=== PATIENT | male | born 1965 | race Caucasian/White ===

== ENCOUNTER 2021-10-21 06:55 | Emergency (ER) | payer BC, SELFPAY ==
[2021-10-21 06:56] VITALS: BP 122/92; PULSE 77; RESP 16; TEMP 36.1; O2SAT 99; BMI 33.6
--- NOTE | 2021-10-21 07:06 | CT_ITS ---
STUDY: CT ABDOMEN AND PELVIS WITH CONTRAST REASON FOR EXAM: Male, 56 years old. Lower abd pain, hematochezia, hx diverticulosis RADIATION DOSAGE (If Supplied By Facility): CTDIvol = ( 15.47 ) mGy, DLP = ( 1103.22 ) mGycm TECHNIQUE: Transaxial images were obtained from the dome of the diaphragm to the symphysis pubis without oral contrast. IV 100mL Isovue-370 was administered. Sagittal and coronal images were reconstructed. Individualized dose optimization techniques were used for this CT. COMPARISON: None. FINDINGS: The visualized lung bases are unremarkable. Coronary artery calcification. There is decreased attenuation of the liver consistent with steatosis. Normal gallbladder and extrahepatic biliary system. Normal spleen. Normal pancreas. Normal bilateral adrenal glands. Normal right kidney. Normal left kidney. There is a small hiatal hernia. Findings suggestive of varices in the region of the splenic hilum and along the greater curvature of the stomach. Norrmal small intestine. There are multiple colonic diverticula consistent with diverticulosis. The appendix is visualized and appears normal. Normal abdominal aorta. Normal inferior vena cava. Normal retroperitoneum. Normal urinary bladder. There are prostatic calcifications. Bilateral inguinal hernias containing fat slightly more prominent on the left side. Small umbilical hernia containing fat. Minimal anterolisthesis of L5 on S1 with spondylolysis of the pars interarticularis of the L5 vertebrae. CT/Abdomen/Pelvis W IV Cont ONLY IMPRESSION: Diffuse fatty infiltration of the liver. Findings suggestive of varices formation. Sigmoid diverticulosis. Bilateral inguinal hernias containing fat more prominent on the left side. Electronically Signed: Migeul Ma MD at 8:29 EDT ,
--- NOTE | 2021-10-21 07:07 | EDS_ITS ---
HPI HPI - GI History of Present Illness Chief Complaint: GI Bleed Informant: patient Abdominal Pain/Flank Pain Onset: Days (2) Context: Gradual Onset Timing: Intermittent Quality: Aching and Cramping Location: - (lower abd, mostly suprapubic) Current Severity: Mild Maximum Severity: Severe Worsened by: Nothing Relieved by: - (having BM) Nausea/Vomiting/Emesis GI Symptom: Negative for Nausea or Vomiting Diarrhea/Melena/Hematochezia GI Symptom: Positive for Diarrhea and Hematochezia; Negative for Melena Stool Quality: Positive for Loose (2-3 times per day) Associated Symptoms Associated Symptoms: Negative for Dysuria, Frequency, Hematuria or Urgency Narrative Narrative: Patient states for the past couple days he has had loose bowel movements couple per day, that have had blood in them. With regards to details, he states mostly the blood has come AFTER he has the loose stool/bowel movement. He denies any melena. He takes aspirin 81 mg daily no anticoagulants. He denies any systemic symptoms such as fevers, chills, nausea or vomiting. He has had some episodes of severe lower abdominal pain. He states that is not severe now but it had been. Seem to go away after bowel movement. Has a history of diverticulosis, last colonoscopy was remotely. He states there were some benign polyps but nothing else. He denies any known sick contacts. No travel out of the area recently. States he was eating a lot of walnuts the other night but denies any other suspicious foods that could have caused this. He drinks city water not well, denies any camping or ground water ingestion recently. [facility] Medical History (Updated 10/21/21 @ 10:[address] Medhat Littlejohn MD) Diverticulosis GERD (gastroesophageal reflux disease) Hyperlipidemia Hypertension Home Medications hydrocortisone 1 %-pramoxine 1 % rectal foam (Proctofoam HC) 1 applic ME QHS 7 days #10 grams 10/21/21 [Rx Last Taken Unknown] Allergy/AdvReac Type Severity Reaction Status Date / Time No Known Allergies Allergy Verified 10/21/21 06:58 Surgical History (Updated 10/21/21 @ 07:[address] Medhat Littlejohn MD) Hx of hemorrhoidectomy Social History Smoking Status: Never smoker ROS ROS ED Constitutional Constitutional ED: Denies chills or fever(s) Eyes Eyes: Denies change in vision or diplopia ENT ENT ED: Denies rhinorrhea or sore throat Cardiovascular Cardiovascular: Denies chest pain or palpitations Respiratory/Chest Respiratory/Chest: Denies cough or dyspnea Gastrointestinal Gastrointestinal: Reports abdominal pain, diarrhea and hematochezia; Denies nausea or vomiting Genitourinary Genitourinary ED: Denies dysuria or hematuria Musculoskeletal Musculoskeletal: Denies back pain or neck pain Integumentary Denies abscess or rash Neurologic Neurologic: Denies headache(s), paresthesias or weakness Psychiatric Psychiatric: Denies anxiety or suicidal thoughts EXAM Physical Exam Const Vital Signs: 10/21/21 06:56 Temperature 97 F L Temperature Source Temporal Pulse Rate 77 Respiratory Rate 16 Blood Pressure 122/92 H Blood Pressure Mean 102 Pulse Ox 99 Oxygen Delivery Method Room Air Positive well nourished and well developed General Appearance ED: well developed and NAD HEENT Reports moist mucous membranes normocephalic and atraumatic Eyes PERRL and EOMs intact bilaterally Neck full ROM and supple Resp normal respiratory effort and clear to auscultation bilaterally Cardio regular rate, regular rhythm and no murmurs Rate: Negative for tachycardic GI non-distended GI Narrative: Very mild tenderness suprapubic. No guarding or rebound tenderness. Otherwise benign abdomen. Auscultation: normoactive bowel sounds Palpation: soft Back/Spine no CVA tenderness General Back: other FROM Extremity normal to inspection General Extremety ED: Negative for edema, pulses abnormal or tenderness General Extremity: Negative for edema or pulses abnormal Neuro oriented x3, CN's II-XII intact bilaterally and no sensory deficits noted Sensorium / Orientation: awake and alert Motor Exam: strength 5/5 throughout Skin no rashes or lesions noted and no wounds MDM MDM MDM Narrative Medical decision making narrative: Labs are normal and a CT shows no evidence of diverticulitis, I did note of the incidental findings and discussed them with the patient. I do not think to have anything to do with his symptoms right now. He does have a history of some internal hemorrhoids were banded in the past and I think it would be reasonable to prescribe him treatment for recurrent ones, and if this does not help he can follow-up for possible scope and other evaluation. He is comfortable with that plan. Lab Data Attestation: I reviewed the patient's lab results. Labs: Laboratory Results - last 24 hr 10/21/21 10/21/21 07:20 07:20 WBC 6.9 RBC 5.31 Hgb 15.2 Hct 44.1 MCV 83.1 MCH 28.6 MCHC 34.5 RDW Std Deviation 38.1 RDW Coeff of Mauro 12.5 Plt Count 288 MPV 9.4 Immature Gran % (Auto) 0.600 Neut % (Auto) 62.9 Lymph % (Auto) 22.2 [place] % (Auto) 8.5 Eos % (Auto) 4.5 Baso % (Auto) 1.3 H Absolute Neuts (auto) 4.4 Absolute Lymphs (auto) 1.54 Nucleated RBC % 0 Sodium 138 Potassium 3.8 Chloride 105 Carbon Dioxide 28.0 Anion Gap 5 BUN 16 Creatinine 0.83 Estim Creat Clear Calc 76.75 Est GFR (MDRD) Af Amer 124 Est GFR (MDRD) Non-Af 102 BUN/Creatinine Ratio 19.4 Glucose 112 H Calcium 8.2 L Radiography Diagnostic Testing: Clinical Impression(s) from Imaging Studies Abdomen/Pelvis CT 10/21/21 07:06 IMPRESSION: Diffuse fatty infiltration of the liver. Findings suggestive of varices formation. Sigmoid diverticulosis. Bilateral inguinal hernias containing fat more prominent on the left side. Electronically Signed: Miguel Ma MD at 8:29 EDT , Discharge Plan Triage Chief Complaint: GI Bleed ED Provider: Medhat Littlejohn Dx/Rx/DC Orders Clinical Impression: Intermittent lower abdominal pain, Hematochezia, History of hemorrhoids, History of diverticulosis Instructions: Understanding Rectal Bleeding Prescriptions: New Proctofoam HC 1-1 % foam 1 applic ME QHS 7 Days Qty: 10 0RF Primary Care Provider: LEONARDA CORBIN MD Referrals: NOT,DEFINED [NON-STAFF] - Doctor,Your [NON-STAFF] - 1 Week if not improving Disposition Disposition: Home, Self Care
[2021-10-21 07:28] LABS: Absolute Lymphocyte Count 1.54 X10^3/uL (0.83-4.51); Absolute Neutrophil Count 4.4 X10^3/uL (2.0-7.7); Basophil# 0.09 X10^3/uL; Basophil% 1.3 % (0-1); Eosinophil# 0.31 X10^3/uL; Eosinophils% 4.5 % (0-5); Hematocrit 44.1 % (40-54); Hemoglobin 15.2 g/dL (13.0-16.5); Lymphocyte # 1.54 X10^3/ul (0.83-4.51); Lymphocyte % 22.2 % (19-41); Mean Corp Hgb Conc 34.5 g/dL (32-36); Mean Corpuscular Hgb 28.6 pg (27.0-32.0); Mean Corpuscular Volume 83.1 fL (80-94); Mean Platelet Vol. 9.4 fl (6.2-12.0); Monocyte# 0.59 X10^3/uL; Monocyte% 8.5 % (0-10); NRBC Flagged by Analyzer 0 % (0-5); Neutrophil # 4.37 X10^3/uL (2.7-7.7); Neutrophil % 62.9 % (47-70); Platelet Count 288 K/mm3 (150-450); RBC Distribution Width CV 12.5 % (11.6-14.6); RBC Distribution Width SD 38.1 fl (35.1-43.9); Red Blood Count 5.31 M/mm3 (4.6-6.2); White Blood Count 6.9 K/mm3 (4.4-11.0)
[2021-10-21] MEDS: Dicyclomine 10 MG Capsule 20 MG PO (07:29)
[2021-10-21 07:39] LABS: Anion Gap 5 (5-15); BUN 16 mg/dL (7-18); BUN/Creat Ratio 19.4 RATIO (10-20); Calcium,Total 8.2 mg/dL (8.5-10.1); Chloride 105 mmol/L (98-107); Creatinine, Serum 0.83 mg/dL (0.70-1.30); EST Glomerular Filtration Rate 102 mL/min (>60); Est Glom Filt Rate - Afr Amer 124 mL/min (>60); Estimated Creatinine Clearance 76.75 ml/min; Glucose 112 mg/dL (74-106); Potassium 3.8 mmol/L (3.5-5.1); Sodium Level 138 mmol/L (136-145)
[2021-10-21 10:45] VITALS: BP 117/87; PULSE 74; RESP 16; O2SAT 98
== END 2021-10-21 10:47 | disposition home or self-care (01) ==
PROVIDERS: Emergency Provider Emergency Medicine; Visit Provider Emergency Medicine
DX: R19.7 Diarrhea, unspecified (principal); K92.1 Melena; I10 Essential (primary) hypertension; E78.5 Hyperlipidemia, unspecified; R10.30 Lower abdominal pain, unspecified; K21.9 Gastro-esophageal reflux disease without esophagitis; Z79.82 Long term (current) use of aspirin
CPT/HCPCS: 74177; 80048; 85025; 96360; 96361; 99284; J7030; Q9967; A4216